=== PATIENT | female | born 1960 | race Caucasian/White ===

== ENCOUNTER → 2016-08-08 | Outpatient (CLI) | payer OTHER ==
[~2016-08-08] MED LIST: AMLO10TA2 PO; LOSARTAN-HCTZ PO; METO100T PO; PEGINTERFERON ALFA SC; [UNRECOGNIZED DRUG - CODE] PO; [UNRECOGNIZED DRUG - CODE] PO
--- NOTE | 2016-08-08 14:57 | REP ---
REASON: Thyroid nodule followup The patient is status post right thyroidectomy. The left lobe measures 6 x 2.3 x 2.4 cm. Multiple nodules are again seen in the left lobe of the thyroid gland. These are all unchanged from the prior exam. There are no new nodules. The largest nodule has a maximal dimension of 1.6 cm. IMPRESSION: No significant change from the prior exam. Signed by Amrit Segura DO 08/08/2016 05:01 P
== END ==
LOC: M RAD 13:34
PROVIDERS: ATTEND Surgery
DX: E04.1 Nontoxic single thyroid nodule (principal)

== ENCOUNTER → 2018-08-17 | Outpatient (CLI) | payer OTHER ==
--- NOTE | 2018-08-18 07:28 | REP ---
Clinical: Follow-up thyroid nodule. Technique: Real time cabrera scale and color evaluation using a high frequency transducer. Comparison: 08/12/2017. Findings: The patient is again noted to be status post right thyroidectomy with a small right-sided lymph node in the thyroid bed measuring 12 x 7 x 3 mm. Isthmus measures 1.8 mm in width. Left thyroid lobe measures 5.3 x 2.3 x 2.2 cm and appears diffusely heterogeneous with multiple complex cysts and nodules. Upper lobe nodule measures 14 x 14 x 15 mm, complex upper pole cyst measures 9 x 6 x 5 mm, complex mid pole cysts measure 10 x 6 x 8 mm, 9 x 8 x 9 mm, and 11 x 7 x 11 mm. Mid pole nodule measures 7 x 4 x 7 mm. Lower pole nodule measures 16 x 13 x 12 mm lower pole complex cyst measures 8 x 5 x 7 mm. Impression: Complex cysts and nodules in the left lobe as described above essentially unchanged. Electronically Signed by Genaro Tripathi MD 08/18/2018 07:19 A
== END ==
LOC: M RAD 14:16
PROVIDERS: ATTEND Surgery
DX: E04.1 Nontoxic single thyroid nodule (principal)

== ENCOUNTER → 2019-09-12 | Outpatient (CLI) | payer OTHER ==
[~2019-09-12] MED LIST changes: +FAMO20TA PO; +LIDOCAINE 1% MDV 20ML VIAL As Ordered ONE
[2019-09-12 12:28] VITALS: BP 148/70
--- NOTE | 2019-09-12 21:34 | REP ---
ULTRASOUND-GUIDED LEFT THYROID BIOPSY The procedure was performed under the direct supervision of Dr. Velazquez. The patient has a history of multiple left thyroid nodules seen on a previous ultrasound dated 08/24/2019. The risks and benefits of the procedure were explained to the patient and informed consent was obtained. The largest left thyroid nodule was localized using ultrasound guidance. The skin was prepped and draped in a sterile fashion. 1% lidocaine was used as a local anesthetic. Using ultrasound guidance four fine-needle aspirations were obtained using 25 gauge needles. The patient tolerated the procedure well and there were no immediate complications. After the appropriate amount of monitored convalescence the patient was discharged from the department. Electronically Signed by CHRISTY Dia 09/12/2019 04:23 P Electronically Signed by Aung Velazquez MD 09/12/2019 09:25 P
== END ==
LOC: M IRPRO 11:17
PROVIDERS: ATTEND Surgery
DX: E04.1 Nontoxic single thyroid nodule (principal); Z88.0 Allergy status to penicillin; Z88.8 Allergy status to other drugs, medicaments and biological substances

== ENCOUNTER → 2020-06-04 | Outpatient (CLI) | payer OTHER ==
[~2020-06-04] MED LIST changes: -LIDOCAINE 1% MDV 20ML VIAL As Ordered ONE
--- NOTE | 2020-06-05 09:58 | REP ---
INDICATION: NEOPLASM LEFT UPPER LOBE. Left upper lobe nodule on recent screening lung CT. COMPARISON: CT studies of the chest from 04 May 2020 and 23 Aug 2018.. TECHNIQUE: Sixty-three minutes following the intravenous injection of a 16.34 mCi dose of F-18 FDG, three-dimensional PET scintigraphy is acquired from the skull base to the proximal thighs. Triplanar noncontrast CT scanning is acquired through the same anatomic range for attenuation correction, and image registration with scan parameters optimized to minimize radiation exposure to the patient. PET scintigraphy and CT datasets were fused and displayed on a workstation with multiplanar and projection display capability. FINDINGS: The right thyroid lobe appears to be surgically absent. Left lobe is somewhat prominent but no abnormal uptake is seen. Head and neck soft tissues are otherwise unremarkable. There is a moderate levoconvex thoracolumbar scoliotic curve noted. Ascending thoracic aorta is somewhat dilated measuring 4.2 cm in diameter. There is a lipomatous hypertrophy of the interatrial septum noted incidentally in the mediastinum. There is some vascular calcification. The recently identified nodular sheree density in the left upper lobe shows barely visible non hypermetabolic accumulation of FDG, maximum standard uptake value 1.42. There is no other abnormal hypermetabolic uptake within the thorax. No abnormal hilar or mediastinal toni uptake is seen. In the abdomen and pelvis normal adrenal glands are seen. No abnormal hypermetabolic uptake is seen in the abdomen or pelvis on accompanying scintigraphy. IMPRESSION: The left upper lobe nodule does not show hypermetabolic uptake. This does not completely exclude malignancy. The nodule is under a cm in diameter and new. Interval CT follow-up recommended. 4-6 months. <Electronically signed by Ervin Coronel > 06/05/20 [id number]
== END ==
LOC: M PLARAD 11:20
PROVIDERS: ATTEND Family Medicine
DX: D38.1 Neoplasm of uncertain behavior of trachea, bronchus and lung (principal)
CPT/HCPCS: 78815; A9552

== ENCOUNTER → 2020-09-17 | Outpatient (CLI) | payer OTHER ==
--- NOTE | 2020-09-18 07:39 | REP ---
INDICATION: THYROID NODULE COMPARISON: 08/24/2019 TECHNIQUE: Velazquez scale and color evaluation of the thyroid gland using the linear high frequency transducer. FINDINGS: Prior right thyroidectomy. Left lobe measures 6.2 x 2.3 x 2.0 cm and appears diffusely heterogeneous including 1.8 x 1.1 x 1.4 cm complex midpole nodule, 1.3 x 1.2 x 1.1 cm complex isoechoic mid/lower pole nodule, and 1.5 x 1.2 x 1.2 cm complex lower pole nodule. IMPRESSION: 1. Status post right thyroidectomy without abnormality in the right thyroid bed/neck. 2. Heterogeneous complex nodules in the left thyroid gland which rank as TIRADS 4, but are difficult to compared to prior examination due to vast differences in technique. <Electronically signed by Genaro Tripathi > 09/18/20 0711
== END ==
LOC: M RAD 10:33
PROVIDERS: ATTEND Surgery
DX: E04.1 Nontoxic single thyroid nodule (principal); Z90.89 Acquired absence of other organs

== ENCOUNTER 2020-10-10 10:29 | Emergency (ER) | payer OTHER ==
[~2020-10-10] VITALS: Ht 165.1 cm; Wt 47.5 kg
[2020-10-10 11:59] LABS: BASO # 0.2 10^3/uL (0.0-0.2); BASO % 1.7 % (0.0-1.0); EOS # 0.2 10^3/uL (0.0-0.5); EOS % 1.7 % (0.0-3.0); HEMATOCRIT 41.2 % (36.0-47.0); HEMOGLOBIN 13.6 g/dl (12.0-15.5); LYMPH # 1.4 10^3/uL (1.5-5.0); MEAN CORPUSCULAR HEMOGLOBIN 31.6 pg (27.0-33.0); MEAN CORPUSCULAR VOLUME 95.8 fl (80.0-96.0); MONO # 0.8 10^3/uL (0.0-0.8); MONO % 8.8 % (2.0-8.0); NEUTROPHILS # 6.6 10^3/uL (1.5-8.5); NEUTROPHILS % 72.2 % (36.0-66.0); PLATELET COUNT, AUTOMATED 272 10^3/uL (150-450); WHITE BLOOD COUNT 9.1 10^3/uL (4.0-10.0)
[2020-10-10 12:28] LABS: ALT/SGPT 21 U/L (12-78); BILIRUBIN,DIRECT < 0.1 MG/DL (0.0-0.2); BILIRUBIN,TOTAL 0.3 MG/DL (0.2-1.0); BLOOD UREA NITROGEN 16 MG/DL (7-18); CARBON DIOXIDE LEVEL 28 MEQ/L (21-32); CHLORIDE LEVEL 103 MEQ/L (98-107); GLOMERULAR FILTRATION RATE > 60.0 (>45); GLUCOSE, FASTING 101 MG/DL (70-100); LIPASE 154 U/L (73-393); POTASSIUM SERUM 5.3 MEQ/L (3.5-5.1); SODIUM LEVEL 135 MEQ/L (136-145); TOTAL PROTEIN 7.4 GM/DL (6.4-8.2)
[2020-10-10] MEDS ORDERED: ACETAMINOPHEN 325 MG TAB PO ONE (13:45)
[2020-10-10] MEDS ORDERED: methocarbamoL 500 MG TAB PO ONE (13:45)
--- NOTE | 2020-10-10 14:04 | REP ---
INDICATION: hip pain COMPARISON: None. TECHNIQUE: AP and frog-lateral views of the right hip FINDINGS: Generalized age-related changes include subtle increased sclerosis to the acetabulum with minimal joint space narrowing. No further overt osteoarthritic or significant degenerative changes are appreciated. No evidence for acute or healed injury. Surrounding soft tissues are normal. IMPRESSION: Mild generalized age-related changes. <Electronically signed by Genaro Tripathi > 10/10/20 1400
[2020-10-10 14:26] VITALS: BP 144/86
[2020-10-10] MEDS ORDERED: METH-1164 PO (14:38)
== END 2020-10-10 14:43 | disposition home or self-care (01) ==
LOC: M ED 10:29
DX: S39.011A Strain of muscle, fascia and tendon of abdomen, initial encounter (principal); X58.XXXA Exposure to other specified factors, initial encounter; Y92.89 Other specified places as the place of occurrence of the external cause; E87.5 Hyperkalemia; Z88.0 Allergy status to penicillin; Z88.8 Allergy status to other drugs, medicaments and biological substances; F17.210 Nicotine dependence, cigarettes, uncomplicated

== ENCOUNTER → 2020-11-23 | Outpatient (CLI) | payer OTHER ==
[~2020-11-23] MED LIST changes: +METH-1164 PO
--- NOTE | 2020-11-23 13:26 | REP ---
INDICATION: NEW CAROTID BRUIT COMPARISON: None. TECHNIQUE: Real-time ultrasound evaluation and duplex Doppler interrogation of the extracranial carotid vasculature is performed. FINDINGS: There is moderate plaquing and narrowing in both carotid bulbs extending into the internal and external carotid arteries. Luminal narrowing is less than 50%. There is no evidence of hemodynamically significant stenosis of either internal carotid artery. Normal flow velocities are seen. The vertebral arteries demonstrate normal direction of flow. RIGHT LEFT Peak systolic velocity ICA 89.5 cm/s 118.3 cm/s End diastolic velocity ICA 30.8 cm/s 40.3 cm/s Peak systolic velocity CCA 94.1 cm/s 91.5cm/s Peak systolic velocity ECA 71.0 cm/s 115 cm/s ICA/CCA ratio 0.95 1.25 IMPRESSION: Bilateral luminal narrowing of the internal carotid arteries less than 50%. No evidence of hemodynamically significant stenosis. <Electronically signed by Aung Velazquez > 11/23/20 [id number]
== END ==
LOC: M RAD 12:14
PROVIDERS: ATTEND Nurse Practitioner Family
DX: I10 Essential (primary) hypertension (principal)

== ENCOUNTER → 2020-12-11 | Outpatient (CLI) | payer OTHER ==
--- NOTE | 2020-12-11 14:51 | REP ---
INDICATION: THYROTOXICOSIS. COMPARISON: 09/17/2020. TECHNIQUE: Real-time sonographic evaluation of left thyroid performed status post right thyroidectomy. FINDINGS: Left lobe of the thyroid measures 5.8 x 2.4 x 2.1 cm. Multiple nodules are visualized throughout the left lobe of the thyroid, the largest are measured. In the left upper pole a heterogeneous solid nodule measures 1.7 x 1.0 x 1.7 cm, in the mid aspect a solid nodule measures 9 x 7 x 9 mm, and in the lower pole a solid nodule is heterogeneous and measures 1.4 cm in diameter. No mass is seen in the right thyroid bed. IMPRESSION: Stable appearance of the left lobe of the thyroid, which is mildly enlarged and contains stable solid nodules as discussed above. <Electronically signed by Aung Velazquez > 12/11/20 [id number]
== END ==
LOC: M RAD 14:03
PROVIDERS: ATTEND Nurse Practitioner Family
DX: E05.90 Thyrotoxicosis, unspecified without thyrotoxic crisis or storm (principal)

== ENCOUNTER → 2021-01-21 | Outpatient (CLI) | payer OTHER ==
--- NOTE | 2021-01-22 17:09 | REP ---
INDICATION: E07.9-DISORDER OF THYROID. COMPARISON: Ultrasound 12/11/2020. TECHNIQUE/RADIOTRACER AND DOSE: Following the oral administration of 361 uCi iodine 123 as sodium iodine, thyroid uptake is measured at 24 hours, followed by thyroid scan. FINDINGS: The 24 hour uptake is 9.26%, the normal range of 25-35%. Thyroid scan shows absent activity in the right thyroid bed, status post right thyroidectomy. In the upper half of the left lobe of the thyroid there is relative photopenia. In the lower half there is relatively increased radiotracer uptake. IMPRESSION: Diminished 24 hour uptake. Thyroid scan shows relative photopenia in the upper half of the left lobe of the thyroid and relatively increased radiotracer uptake in the lower half of the left lobe. Ultrasound showed stable solid nodule in the upper pole approximately 1.7 cm in maximum diameter and another stable solid nodule in the lower pole 1.4 cm in diameter. Clinical correlation is necessary. <Electronically signed by Aung Velazquez > 01/22/21 [id number]
== END ==
LOC: M RAD 13:28
PROVIDERS: ATTEND Nurse Practitioner Family
DX: E04.1 Nontoxic single thyroid nodule (principal)
CPT/HCPCS: 78012; A9516

== ENCOUNTER → 2021-06-18 | Outpatient (CLI) | payer OTHER | LOC: M RAD 12:55 | PROVIDERS: ATTEND Nurse Practitioner Family | DX: D38.1 Neoplasm of uncertain behavior of trachea, bronchus and lung (principal) ==

== ENCOUNTER 2022-04-02 11:16 | Inpatient (IN) | payer OTHER ==
[~2022-04-02] VITALS: Ht 165.1 cm; Wt 50.1 kg
[2022-04-02 12:02] LABS: BASO # 0.1 10^3/uL (0.0-0.2); BASO % 0.7 % (0.0-1.0); HEMATOCRIT 27.9 % (36.0-47.0); HEMOGLOBIN 8.9 g/dl (12.0-15.5); LYMPH # 0.3 10^3/uL (1.5-5.0); LYMPH % 1.5 % (24.0-44.0); MEAN CORPUSCULAR HEMOGLOBIN 31.1 pg (27.0-33.0); MEAN CORPUSCULAR HGB CONC 31.9 g/dl (32.0-36.5); MEAN CORPUSCULAR VOLUME 97.6 fl (80.0-96.0); MONO # 0.7 10^3/uL (0.0-0.8); MONO % 3.8 % (2.0-8.0); NEUTROPHILS # 16.5 10^3/uL (1.5-8.5); NEUTROPHILS % 92.8 % (36.0-66.0); PLATELET COUNT, AUTOMATED 622 10^3/uL (150-450); RED BLOOD COUNT 2.86 10^6/uL (4.00-5.40); WHITE BLOOD COUNT 17.8 10^3/uL (4.0-10.0)
[2022-04-02] MEDS ORDERED: ACETAMINOPHEN TAB 650MG DOSE (2X325MG) PO ONE (12:15)
[2022-04-02] MEDS ORDERED: APIXABAN 5 MG TAB (ELIQUIS) PO ONE (12:30)
[2022-04-02] MEDS ORDERED: METOPROLOL TART 25 MG TABLET PO ONE (12:30)
[2022-04-02 12:31] LABS: ALBUMIN 3.4 G/DL (3.2-5.2); ALKALINE PHOSPHATASE 66 U/L (46-116); ALT/SGPT 12 U/L (7.0-40); AST/SGOT 27 U/L (<34); BILIRUBIN,DIRECT 0.2 MG/DL (<0.4); BILIRUBIN,TOTAL 0.4 MG/DL (0.3-1.2); BLOOD UREA NITROGEN 8 MG/DL (9-23); CALCIUM LEVEL 9.7 MG/DL (8.3-10.6); CARBON DIOXIDE LEVEL 23 MMOL/L (20-31); CHLORIDE LEVEL 101 MMOL/L (98-107); CREATININE FOR GFR 0.85 MG/DL (0.55-1.30); GLOMERULAR FILTRATION RATE > 60.0 (>45); GLUCOSE, FASTING 132 MG/DL (74-106); POTASSIUM SERUM 4.5 MMOL/L (3.5-5.1); SODIUM LEVEL 137 MMOL/L (136-145)
[2022-04-02 12:34] LABS: THYROID STIMULATING HORMONE 0.346 uIU/ML (0.55-4.78)
[2022-04-02] MEDS ORDERED: FUROSEMIDE 40MG/4ML VIAL IV ONE ×2 (13:00→19:15)
[2022-04-02] MEDS ORDERED: IPRATROPIUM 0.5MG/ALBUTEROL 2.5MG INH SOL UD 3ML (DUONEB) NEB ONE (13:50)
[2022-04-02] MEDS ORDERED: OSELTAMIVIR PHOSPHATE 75 MG CAP (TAMIFLU) PO ONE (13:50)
[2022-04-02] MEDS ORDERED: AMLO1TAB24 PO (15:51)
[2022-04-02] MEDS ORDERED: METO1TAB87 PO (15:51)
[2022-04-02] MEDS ORDERED: FOLI1TAB11 PO (15:51)
[2022-04-02] MEDS ORDERED: FAMO40TA3 PO (15:51)
[2022-04-02] MEDS ORDERED: HYDR-3713 PO (15:54)
[2022-04-02] MEDS ORDERED: ACET-897 PO (15:54)
[2022-04-02] MEDS ORDERED: HOME MED LIST COMPLETE! XX SCH (15:55)
[2022-04-02] MEDS ORDERED: ELIQ5TAB PO (16:45)
[2022-04-02 16:49] LABS: INR 1.86; PROTHROMBIN TIME 21.8 SECONDS (12.5-14.5)
[2022-04-02 16:50] LABS: PARTIAL THROMBOPLASTIN TIME 45.3 SECONDS (24.8-34.2)
[2022-04-02] MEDS ORDERED: ACETAMINOPHEN 325 MG TAB PO ONE (19:45)
[2022-04-02] MEDS: NORCO, ANEXSIA 5/325MG TABLET (HYDROcodone/ACETAMINOPHEN) PO PRN (19:49)
[2022-04-02] MEDS: BUDESONIDE 0.5 MG/2 ML INHALATION SUSPENSION INH SCH (20:00)
[2022-04-02] MEDS: APIXABAN 5 MG TAB (ELIQUIS) PO SCH (20:23)
[2022-04-02] MEDS: OSELTAMIVIR PHOSPHATE 30MG CAPSULE PO SCH (20:23)
[2022-04-02] MEDS: IPRATROPIUM 0.5MG/ALBUTEROL 2.5MG INH SOL UD 3ML (DUONEB) NEB SCH (20:32)
[2022-04-02] MEDS: METOPROLOL TART 12.5 MG PER 1/2 TAB PO SCH (20:32)
[2022-04-03 01:20] VITALS: BP 136/63
[2022-04-03] MEDS: IPRATROPIUM 0.5MG/ALBUTEROL 2.5MG INH SOL UD 3ML (DUONEB) NEB SCH ×4 (02:41→20:04)
[2022-04-03] MEDS ORDERED: ACETAMINOPHEN TAB 650MG DOSE (2X325MG) PO PRN (04:35)
[2022-04-03 04:52] VITALS: BP 145/65
[2022-04-03 05:44] LABS: BASO # 0.1 10^3/uL (0.0-0.2); BASO % 0.9 % (0.0-1.0); HEMATOCRIT 23.6 % (36.0-47.0); HEMOGLOBIN 7.5 g/dl (12.0-15.5); LYMPH # 0.4 10^3/uL (1.5-5.0); LYMPH % 4.4 % (24.0-44.0); MEAN CORPUSCULAR HEMOGLOBIN 30.5 pg (27.0-33.0); MEAN CORPUSCULAR HGB CONC 31.8 g/dl (32.0-36.5); MEAN CORPUSCULAR VOLUME 95.9 fl (80.0-96.0); MONO # 0.7 10^3/uL (0.0-0.8); MONO % 8.4 % (2.0-8.0); NEUTROPHILS # 7.5 10^3/uL (1.5-8.5); NEUTROPHILS % 85.7 % (36.0-66.0); RED BLOOD COUNT 2.46 10^6/uL (4.00-5.40); WHITE BLOOD COUNT 8.8 10^3/uL (4.0-10.0)
[2022-04-03 05:52] LABS: PLATELET COUNT, AUTOMATED 410 10^3/uL (150-450)
[2022-04-03] MEDS: BUDESONIDE 0.5 MG/2 ML INHALATION SUSPENSION INH SCH ×2 (06:04→20:04)
[2022-04-03 06:10] LABS: BLOOD UREA NITROGEN 13 MG/DL (9-23); CALCIUM LEVEL 8.1 MG/DL (8.3-10.6); CARBON DIOXIDE LEVEL 26 MMOL/L (20-31); CHLORIDE LEVEL 100 MMOL/L (98-107); CREATININE FOR GFR 0.77 MG/DL (0.55-1.30); GLOMERULAR FILTRATION RATE > 60.0 (>45); GLUCOSE, FASTING 98 MG/DL (74-106); POTASSIUM SERUM 3.8 MMOL/L (3.5-5.1); SODIUM LEVEL 135 MMOL/L (136-145)
[2022-04-03] MEDS ORDERED: IBUPROFEN 600MG TAB PO PRN (07:05)
[2022-04-03 08:00] VITALS: BP 116/59
[2022-04-03] MEDS ORDERED: FUROSEMIDE 40MG/4ML VIAL IV SCH ×2 (09:00)
[2022-04-03] MEDS ORDERED: FAMOTIDINE 20 MG TAB PO SCH (09:00)
[2022-04-03] MEDS: amLODIPine 5 MG TAB PO SCH (09:15)
[2022-04-03] MEDS: APIXABAN 5 MG TAB (ELIQUIS) PO SCH ×2 (09:15→22:00)
[2022-04-03] MEDS: FOLIC ACID 1MG TAB PO SCH (09:15)
[2022-04-03] MEDS: OSELTAMIVIR PHOSPHATE 30MG CAPSULE PO SCH ×2 (09:15→22:00)
[2022-04-03] MEDS: METOPROLOL TART 12.5 MG PER 1/2 TAB PO SCH ×2 (09:15→21:59)
[2022-04-03 11:45] LABS: HEMATOCRIT 25.4 % (36.0-47.0); HEMOGLOBIN 8.1 g/dl (12.0-15.5)
[2022-04-03 12:00] VITALS: BP 132/60
[2022-04-03] MEDS: predniSONE 20 MG TAB PO SCH (12:29)
[2022-04-03 12:40] LABS: IRON (FE) 6 UG/DL (50-170); TOTAL IRON BINDING CAPACITY 197 UG/DL (250-425)
[2022-04-03 12:41] LABS: FERRITIN 360.7 NG/ML (7.3-270.7); VITAMIN B12 LEVEL 1618 PG/ML (211-911)
[2022-04-03 16:00] VITALS: BP 120/56
[2022-04-03 20:37] VITALS: BP 117/57
[2022-04-03] MEDS: PANTOPRAZOLE 40MG TAB (PROTONIX) PO SCH (22:00)
[2022-04-04] VITALS (7 sets, daily range): BP systolic 86–109; BP diastolic 45–56
[2022-04-04] MEDS: IPRATROPIUM 0.5MG/ALBUTEROL 2.5MG INH SOL UD 3ML (DUONEB) NEB SCH ×4 (01:20→19:56)
[2022-04-04 05:44] LABS: BASO % 0.4 % (0.0-1.0); HEMATOCRIT 24.2 % (36.0-47.0); HEMOGLOBIN 7.6 g/dl (12.0-15.5); LYMPH # 0.3 10^3/uL (1.5-5.0); LYMPH % 4.4 % (24.0-44.0); MEAN CORPUSCULAR HEMOGLOBIN 30.2 pg (27.0-33.0); MEAN CORPUSCULAR HGB CONC 31.4 g/dl (32.0-36.5); MONO # 0.7 10^3/uL (0.0-0.8); MONO % 9.7 % (2.0-8.0); NEUTROPHILS # 5.9 10^3/uL (1.5-8.5); NEUTROPHILS % 84.8 % (36.0-66.0); PLATELET COUNT, AUTOMATED 397 10^3/uL (150-450); RED BLOOD COUNT 2.52 10^6/uL (4.00-5.40)
[2022-04-04 06:11] LABS: BLOOD UREA NITROGEN 18 MG/DL (9-23); CALCIUM LEVEL 8.4 MG/DL (8.3-10.6); CARBON DIOXIDE LEVEL 27 MMOL/L (20-31); CHLORIDE LEVEL 100 MMOL/L (98-107); CREATININE FOR GFR 0.82 MG/DL (0.55-1.30); GLOMERULAR FILTRATION RATE > 60.0 (>45); GLUCOSE, FASTING 106 MG/DL (74-106); POTASSIUM SERUM 4.1 MMOL/L (3.5-5.1); SODIUM LEVEL 135 MMOL/L (136-145)
[2022-04-04] MEDS: NORCO, ANEXSIA 5/325MG TABLET (HYDROcodone/ACETAMINOPHEN) PO PRN ×2 (06:29→22:25)
[2022-04-04] MEDS: BUDESONIDE 0.5 MG/2 ML INHALATION SUSPENSION INH SCH ×2 (07:31→19:56)
[2022-04-04] MEDS ORDERED: FUROSEMIDE 40 MG TAB PO SCH (09:00)
[2022-04-04] MEDS: FOLIC ACID 1MG TAB PO SCH (09:33)
[2022-04-04] MEDS: METOPROLOL TART 12.5 MG PER 1/2 TAB PO SCH ×2 (09:33→21:00)
[2022-04-04] MEDS: FAMOTIDINE 20 MG TAB PO SCH (09:34)
[2022-04-04] MEDS: OSELTAMIVIR PHOSPHATE 30MG CAPSULE PO SCH ×2 (09:34→20:28)
[2022-04-04] MEDS: predniSONE 20 MG TAB PO SCH (09:34)
[2022-04-04] MEDS: APIXABAN 5 MG TAB (ELIQUIS) PO SCH ×2 (09:34→20:28)
[2022-04-04] MEDS: amLODIPine 5 MG TAB PO SCH (09:35)
[2022-04-04] MEDS ORDERED: ISOVUE-370 76% 100ML VIAL As Ordered ONE (11:07)
[2022-04-04] MEDS: PANTOPRAZOLE 40MG TAB (PROTONIX) PO SCH (20:28)
[2022-04-05] VITALS (13 sets, daily range): BP systolic 90–157; BP diastolic 55–82
[2022-04-05] MEDS: IPRATROPIUM 0.5MG/ALBUTEROL 2.5MG INH SOL UD 3ML (DUONEB) NEB SCH ×4 (01:26→21:28)
[2022-04-05 06:01] LABS: BASO % 0.1 % (0.0-1.0); HEMATOCRIT 21.6 % (36.0-47.0); LYMPH # 0.5 10^3/uL (1.5-5.0); LYMPH % 7.1 % (24.0-44.0); MEAN CORPUSCULAR HEMOGLOBIN 30.1 pg (27.0-33.0); MEAN CORPUSCULAR HGB CONC 31.5 g/dl (32.0-36.5); MEAN CORPUSCULAR VOLUME 95.6 fl (80.0-96.0); MONO # 0.5 10^3/uL (0.0-0.8); MONO % 7.4 % (2.0-8.0); NEUTROPHILS % 84.7 % (36.0-66.0); PLATELET COUNT, AUTOMATED 366 10^3/uL (150-450); RED BLOOD COUNT 2.26 10^6/uL (4.00-5.40); WHITE BLOOD COUNT 7.1 10^3/uL (4.0-10.0)
[2022-04-05 06:16] LABS: HEMOGLOBIN 6.8 g/dl (12.0-15.5)
[2022-04-05 06:30] LABS: BLOOD UREA NITROGEN 31 MG/DL (9-23); CALCIUM LEVEL 7.9 MG/DL (8.3-10.6); CARBON DIOXIDE LEVEL 24 MMOL/L (20-31); CHLORIDE LEVEL 101 MMOL/L (98-107); CREATININE FOR GFR 0.54 MG/DL (0.55-1.30); GLOMERULAR FILTRATION RATE > 60.0 (>45); GLUCOSE, FASTING 109 MG/DL (74-106); POTASSIUM SERUM 3.7 MMOL/L (3.5-5.1); SODIUM LEVEL 138 MMOL/L (136-145)
[2022-04-05] MEDS: BUDESONIDE 0.5 MG/2 ML INHALATION SUSPENSION INH SCH ×2 (07:24→21:28)
[2022-04-05] MEDS ORDERED: FUROSEMIDE 40MG/4ML VIAL IV ONE ×2 (07:35→11:00)
[2022-04-05] MEDS: METOPROLOL TART 12.5 MG PER 1/2 TAB PO SCH ×2 (08:44→20:15)
[2022-04-05] MEDS: amLODIPine 5 MG TAB PO SCH (08:45)
[2022-04-05] MEDS: FAMOTIDINE 20 MG TAB PO SCH (10:24)
[2022-04-05] MEDS: APIXABAN 5 MG TAB (ELIQUIS) PO SCH ×2 (10:24→20:15)
[2022-04-05] MEDS: OSELTAMIVIR PHOSPHATE 30MG CAPSULE PO SCH ×2 (10:24→20:15)
[2022-04-05] MEDS: predniSONE 20 MG TAB PO SCH (10:24)
[2022-04-05] MEDS: FOLIC ACID 1MG TAB PO SCH (10:24)
[2022-04-05] MEDS: NORCO, ANEXSIA 5/325MG TABLET (HYDROcodone/ACETAMINOPHEN) PO PRN (19:30)
[2022-04-05] MEDS: PANTOPRAZOLE 40MG TAB (PROTONIX) PO SCH (20:15)
[2022-04-05] MEDS: PREPARATION H SUPP (HEMORRHOID) PR SCH (22:24)
[2022-04-06] MEDS: IPRATROPIUM 0.5MG/ALBUTEROL 2.5MG INH SOL UD 3ML (DUONEB) NEB SCH ×2 (01:35→08:10)
[2022-04-06 03:49] VITALS: BP 132/84
[2022-04-06 05:48] LABS: BASO % 0.2 % (0.0-1.0); HEMATOCRIT 29.5 % (36.0-47.0); HEMOGLOBIN 9.6 g/dl (12.0-15.5); LYMPH # 0.6 10^3/uL (1.5-5.0); LYMPH % 6.9 % (24.0-44.0); MEAN CORPUSCULAR HEMOGLOBIN 29.3 pg (27.0-33.0); MEAN CORPUSCULAR HGB CONC 32.5 g/dl (32.0-36.5); MEAN CORPUSCULAR VOLUME 89.9 fl (80.0-96.0); MONO # 0.7 10^3/uL (0.0-0.8); MONO % 8.1 % (2.0-8.0); NEUTROPHILS % 83.8 % (36.0-66.0); PLATELET COUNT, AUTOMATED 336 10^3/uL (150-450); RED BLOOD COUNT 3.28 10^6/uL (4.00-5.40); WHITE BLOOD COUNT 8.4 10^3/uL (4.0-10.0)
[2022-04-06 06:09] LABS: BLOOD UREA NITROGEN 27 MG/DL (9-23); CALCIUM LEVEL 8.2 MG/DL (8.3-10.6); CARBON DIOXIDE LEVEL 27 MMOL/L (20-31); CHLORIDE LEVEL 102 MMOL/L (98-107); CREATININE FOR GFR 0.84 MG/DL (0.55-1.30); GLOMERULAR FILTRATION RATE > 60.0 (>45); GLUCOSE, FASTING 104 MG/DL (74-106); POTASSIUM SERUM 3.6 MMOL/L (3.5-5.1); SODIUM LEVEL 138 MMOL/L (136-145)
[2022-04-06] MEDS ORDERED: FUROSEMIDE 40MG/4ML VIAL IV ONE (07:00)
[2022-04-06 07:33] VITALS: BP 141/77
[2022-04-06 08:03] VITALS: BP 141/77
[2022-04-06] MEDS: METOPROLOL TART 12.5 MG PER 1/2 TAB PO SCH (08:03)
[2022-04-06] MEDS: PREPARATION H SUPP (HEMORRHOID) PR SCH ×2 (08:03→08:08)
[2022-04-06] MEDS: FAMOTIDINE 20 MG TAB PO SCH (08:03)
[2022-04-06] MEDS: FOLIC ACID 1MG TAB PO SCH (08:03)
[2022-04-06] MEDS: predniSONE 20 MG TAB PO SCH (08:03)
[2022-04-06] MEDS: OSELTAMIVIR PHOSPHATE 30MG CAPSULE PO SCH (08:03)
[2022-04-06] MEDS: APIXABAN 5 MG TAB (ELIQUIS) PO SCH (08:03)
[2022-04-06] MEDS: BUDESONIDE 0.5 MG/2 ML INHALATION SUSPENSION INH SCH (08:10)
[2022-04-06] MEDS ORDERED: PANT40TA29 PO (09:06)
[2022-04-06] MEDS ORDERED: VENTAER INH (09:06)
[2022-04-06] MEDS ORDERED: PRED10TA2 PO (09:06)
[2022-04-06] MEDS ORDERED: OSEL30CA PO (09:06)
[2022-04-06] MEDS ORDERED: LASI20TA3 PO (13:31)
[2022-04-06] MEDS ORDERED: POTA-149 PO (13:37)
[2022-04-06] MEDS ORDERED: LASI40TA9 PO (13:37)
== END 2022-04-06 10:44 | disposition home or self-care (01) | DRG 113 ==
LOC: M ED 11:16 → M ED INP 15:33 → M PCU 04-03 01:18
PROVIDERS: ADMIT Internal Medicine Nephrology; ATTEND Internal Medicine Nephrology
PROC: 30233N1 Transfusion of Nonautologous Red Blood Cells into Peripheral Vein, Percutaneous Approach (ICD-10-PCS; principal; 2022-04-05)
DX: J09.X2 Influenza due to identified novel influenza A virus with other respiratory manifestations (principal); J96.01 Acute respiratory failure with hypoxia; I50.33 Acute on chronic diastolic (congestive) heart failure; N17.9 Acute kidney failure, unspecified; J44.0 Chronic obstructive pulmonary disease with (acute) lower respiratory infection; E44.1 Mild protein-calorie malnutrition; F17.200 Nicotine dependence, unspecified, uncomplicated; D50.0 Iron deficiency anemia secondary to blood loss (chronic); J81.1 Chronic pulmonary edema; I11.0 Hypertensive heart disease with heart failure; I49.5 Sick sinus syndrome; J44.1 Chronic obstructive pulmonary disease with (acute) exacerbation; I47.1 Supraventricular tachycardia; I48.91 Unspecified atrial fibrillation; I48.92 Unspecified atrial flutter; K21.9 Gastro-esophageal reflux disease without esophagitis; I25.10 Atherosclerotic heart disease of native coronary artery without angina pectoris; Z95.0 Presence of cardiac pacemaker; M54.50 Low back pain, unspecified; Z79.01 Long term (current) use of anticoagulants; Z79.899 Other long term (current) drug therapy; Z88.1 Allergy status to other antibiotic agents; Z68.1 Body mass index [BMI] 19.9 or less, adult

== ENCOUNTER → 2022-05-30 | Outpatient (CLI) | payer OTHER ==
[~2022-05-30] MED LIST changes: +ACET-897 PO; +AMLO1TAB24 PO; +ELIQ5TAB PO; +FAMO40TA3 PO; +FOLI1TAB11 PO; +HYDR-3713 PO; +LASI20TA3 PO; +LASI40TA9 PO; +METO1TAB87 PO; +OSEL30CA PO; +PANT40TA29 PO; +POTA-149 PO; +PRED10TA2 PO; +VENTAER INH
== END ==
LOC: M WUC 12:12
PROVIDERS: ATTEND Physician Assistant
DX: J98.4 Other disorders of lung (principal); Z95.0 Presence of cardiac pacemaker

== ENCOUNTER → 2023-05-04 | Outpatient (CLI) | payer OTHER | LOC: M RAD 10:38 | PROVIDERS: ATTEND Nurse Practitioner Family | DX: R91.1 Solitary pulmonary nodule (principal) ==

== ENCOUNTER 2023-12-27 07:52 | Emergency (ER) | payer MEDICARE, OTHER ==
[~2023-12-27] VITALS: Ht 167.6 cm; Wt 47.3 kg
[2023-12-27] MEDS ORDERED: TRAM50TA2 PO (11:41)
[2023-12-27 12:08] VITALS: BP 154/73; TEMP 97.8; O2SAT 98
[2023-12-27] MEDS: traMADol 50 MG TAB PO ONE (12:09)
[2023-12-27] MEDS: ACETAMINOPHEN 325 MG TAB PO ONE (12:09)
== END 2023-12-27 12:22 | disposition home or self-care (01) ==
LOC: M ED 07:52
DX: S23.41XA Sprain of ribs, initial encounter (principal); Y92.019 Unspecified place in single-family (private) house as the place of occurrence of the external cause; Y93.9 Activity, unspecified; Y99.9 Unspecified external cause status; F17.210 Nicotine dependence, cigarettes, uncomplicated; Z88.1 Allergy status to other antibiotic agents; Z88.8 Allergy status to other drugs, medicaments and biological substances; Z79.1 Long term (current) use of non-steroidal anti-inflammatories (NSAID); Z79.51 Long term (current) use of inhaled steroids; Z79.01 Long term (current) use of anticoagulants; Z79.899 Other long term (current) drug therapy

== ENCOUNTER 2024-01-15 10:35 | Inpatient (IN) | payer MEDICARE ==
[~2024-01-15] VITALS: Ht 165.1 cm; Wt 46.8 kg
[~2024-01-15 10:35] MED LIST changes: +TRAM50TA2 PO
[2024-01-15] MEDS ORDERED: METO25TA4 PO (11:05)
[2024-01-15 11:23] LABS: BASO # 0.1 10^3/uL (0.0-0.2); BASO % 1.3 % (0.0-1.0); EOS # 0.1 10^3/uL (0.0-0.5); EOS % 1.3 % (0.0-3.0); HEMATOCRIT 36.5 % (36.0-47.0); HEMOGLOBIN 12.1 g/dl (12.0-15.5); LYMPH # 1.3 10^3/uL (1.5-5.0); LYMPH % 14.1 % (24.0-44.0); MEAN CORPUSCULAR HEMOGLOBIN 31.5 pg (27.0-33.0); MEAN CORPUSCULAR HGB CONC 33.2 g/dl (32.0-36.5); MEAN CORPUSCULAR VOLUME 95.1 fl (80.0-96.0); MONO # 0.7 10^3/uL (0.0-0.8); MONO % 7.7 % (2.0-8.0); NEUTROPHILS # 6.8 10^3/uL (1.5-8.5); NEUTROPHILS % 75.2 % (36.0-66.0); PLATELET COUNT, AUTOMATED 221 10^3/uL (150-450); RED BLOOD COUNT 3.84 10^6/uL (4.00-5.40); WHITE BLOOD COUNT 9.1 10^3/uL (4.0-10.0)
[2024-01-15 11:49] LABS: BLOOD UREA NITROGEN 19 MG/DL (9-23); CALCIUM LEVEL 10.1 MG/DL (8.3-10.6); CARBON DIOXIDE LEVEL 26 MMOL/L (20-31); CHLORIDE LEVEL 105 MMOL/L (98-107); CREATININE FOR GFR 0.79 MG/DL (0.55-1.30); GLOMERULAR FILTRATION RATE > 60.0 (>45); GLUCOSE, FASTING 106 MG/DL (74-106); MAGNESIUM LEVEL 1.8 MG/DL (1.8-2.4); POTASSIUM SERUM 4.5 MMOL/L (3.5-5.1); SODIUM LEVEL 137 MMOL/L (136-145)
[2024-01-15] MEDS ORDERED: ISOVUE-370 76% 100ML VIAL As Ordered ONE (13:29)
[2024-01-15] MEDS ORDERED: ATOR1TAB21 PO (17:32)
[2024-01-15] MEDS ORDERED: ASPI81TA26 PO (17:32)
[2024-01-15] MEDS ORDERED: HOME MED LIST COMPLETE! XX SCH (17:35)
[2024-01-15] MEDS: ENOXAPARIN 60MG/0.6ML SYRINGE (J1650 PER 10MG) SC SCH (18:00)
[2024-01-15 18:52] LABS: INR 1.12; PARTIAL THROMBOPLASTIN TIME 29.8 SECONDS (24.8-34.2); PROTHROMBIN TIME 14.1 SECONDS (12.5-14.5)
[2024-01-15 23:55] VITALS: BP 147/71; TEMP 97.1; O2SAT 96
[2024-01-16] MEDS: METOPROLOL TART 25 MG TABLET PO SCH (00:53)
[2024-01-16 04:31] VITALS: BP 133/67; TEMP 97.7; O2SAT 96
[2024-01-16 06:23] LABS: HEMATOCRIT 37.3 % (36.0-47.0); HEMOGLOBIN 12.5 g/dl (12.0-15.5); MEAN CORPUSCULAR HEMOGLOBIN 31.6 pg (27.0-33.0); MEAN CORPUSCULAR HGB CONC 33.5 g/dl (32.0-36.5); MEAN CORPUSCULAR VOLUME 94.2 fl (80.0-96.0); PLATELET COUNT, AUTOMATED 226 10^3/uL (150-450); RED BLOOD COUNT 3.96 10^6/uL (4.00-5.40); WHITE BLOOD COUNT 8.2 10^3/uL (4.0-10.0)
[2024-01-16 06:42] LABS: ALBUMIN 3.9 G/DL (3.2-5.2); ALKALINE PHOSPHATASE 77 U/L (46-116); ALT/SGPT 17 U/L (7.0-40); AST/SGOT 15 U/L (<34); BILIRUBIN,TOTAL 0.7 MG/DL (0.3-1.2); BLOOD UREA NITROGEN 19 MG/DL (9-23); CALCIUM LEVEL 10.4 MG/DL (8.3-10.6); CARBON DIOXIDE LEVEL 27 MMOL/L (20-31); CHLORIDE LEVEL 107 MMOL/L (98-107); CREATININE FOR GFR 0.79 MG/DL (0.55-1.30); GLOMERULAR FILTRATION RATE > 60.0 (>45); GLUCOSE, FASTING 89 MG/DL (74-106); SODIUM LEVEL 139 MMOL/L (136-145); TOTAL PROTEIN 6.9 G/DL (5.7-8.2)
[2024-01-16 07:56] VITALS: BP 143/73; TEMP 97.8; O2SAT 97
[2024-01-16 08:22] VITALS: BP 143/73
[2024-01-16] MEDS: amLODIPine 5 MG TAB PO SCH (08:22)
[2024-01-16] MEDS: FAMOTIDINE 20 MG TAB PO SCH (08:23)
[2024-01-16] MEDS: ATORVASTATIN 20 MG TAB PO SCH (08:23)
[2024-01-16] MEDS ORDERED: PRIL20TA2 PO (11:01)
[2024-01-16] MEDS ORDERED: ELIQ5TAB PO (11:01)
[2024-01-16 11:11] LABS: CHOLESTEROL LEVEL 142 MG/DL (<200); CHOLESTEROL RISK RATIO 1.65 (<5); HDL CHOLESTEROL 85.9 MG/DL (>40); LDL CHOLESTEROL 40.3 MG/DL (<100); NON-HDL-C 56.1 MG/DL; TRIGLYCERIDES LEVEL 79 MG/DL (<150)
== END 2024-01-16 13:22 | disposition home or self-care (01) | DRG 65 ==
LOC: M ED 10:35 → EDBD 10:35 → M ED INP 17:11 → M PCU 23:53
PROVIDERS: ADMIT Internal Medicine; ATTEND Internal Medicine
DX: I63.9 Cerebral infarction, unspecified (principal); E46 Unspecified protein-calorie malnutrition; I48.92 Unspecified atrial flutter; R27.0 Ataxia, unspecified; I25.10 Atherosclerotic heart disease of native coronary artery without angina pectoris; I48.91 Unspecified atrial fibrillation; I49.5 Sick sinus syndrome; I27.20 Pulmonary hypertension, unspecified; K44.9 Diaphragmatic hernia without obstruction or gangrene; K21.9 Gastro-esophageal reflux disease without esophagitis; F17.200 Nicotine dependence, unspecified, uncomplicated; J44.9 Chronic obstructive pulmonary disease, unspecified; Z79.82 Long term (current) use of aspirin; Z79.899 Other long term (current) drug therapy; Z88.1 Allergy status to other antibiotic agents; Z88.8 Allergy status to other drugs, medicaments and biological substances; Z91.040 Latex allergy status; Z95.0 Presence of cardiac pacemaker

== ENCOUNTER → 2024-02-02 | Outpatient (CLI) | payer MEDICARE ==
[~2024-02-02] MED LIST changes: +ASPI81TA26 PO; +ATOR1TAB21 PO; +METO25TA4 PO; +PRIL20TA2 PO
== END ==
LOC: M WHC 12:50
PROVIDERS: ATTEND Physical Therapist
DX: I65.23 Occlusion and stenosis of bilateral carotid arteries (principal)

== ENCOUNTER → 2024-07-25 | Outpatient (CLI) | payer MEDICARE | LOC: M WUC 10:24 | PROVIDERS: ATTEND Internal Medicine Cardiovascular Disease | DX: Z95.0 Presence of cardiac pacemaker (principal) ==